=== PATIENT | male | born 1995 | race Two or more races ===

== ENCOUNTER 2017-05-20 12:43 | Inpatient (IN) | payer OTHER ==
[~2017-05-20] VITALS: Ht 185.4 cm; Wt 81.6 kg
[2017-05-20 14:46] LABS: HEMATOCRIT 42.1 % (38.0-50.0); MCH 26.5 PG (29.0-34.0); MCHC 32.1 G/DL (30.0-36.0); MCV 82.5 FL (86-99); MEAN PLAT.VOLUME 9.6 uM^3 (9.0-12.4); PLATELET COUNT 241 K/uL (156-360); RBC DIS.WIDTH-CV 13.6 % (11.8-14.6); RBC DIS.WIDTH-SD 41.1 % (39-53); WHITE BLOOD COUNT 5.5 K/uL (4.1-10.2)
[2017-05-20 14:58] LABS: CHLORIDE 104 mEq/L (99-109); POTASSIUM 3.7 mEq/L (3.7-5.4); SODIUM 139 mEq/L (136-147)
[2017-05-20 15:05] LABS: AMPHETAMINE NEGATIVE (500 ng/mL); BARBITURATES NEGATIVE (200 ng/mL); BENZODIAZEPINES NEGATIVE (150 ng/mL); COCAINE PRESUMPTIVE POSITIVE (150 ng/mL); INTERNAL CONTROLS VALID? YES; METHADONE NEGATIVE (200 ng/mL); METHAMPHETAMINE NEGATIVE (500 ng/mL); OPIATES (MORPHINE) PRESUMPTIVE POSITIVE (100 ng/mL); OXYCODONE PRESUMPTIVE POSITIVE (100 ng/mL); PHENCYCLIDINE NEGATIVE (25 ng/mL); PROPOXYPHENE NEGATIVE (300 ng/mL); THC CANNABINOIDS NEGATIVE (50 ng/mL); TRICYCLIC ANTIDEPRESSANTS NEGATIVE (300 ng/mL)
[2017-05-20 15:06] LABS: ADD MEDTOX COMMENT Y
[2017-05-20 15:57] LABS: ANION GAP 9 MEQ/L (2-14); SAMPLE HEMOLYSIS CHECK 0; SAMPLE ICTERIC CHECK 0; SAMPLE LIPEMIA CHECK 0
[2017-05-20 16:05] LABS: GFR ESTIMATE (CALCULATED) > 59 mL/min/; GLUCOSE 84 mg/dL (70-99); SERUM ETHYL ALCOHOL < 10 mg/dL; UREA NITROGEN (BUN) 8 mg/dL (9-23)
[2017-05-20 17:47] VITALS: BP 121/67
[2017-05-21 07:59] VITALS: BP 107/55
[2017-05-21 16:05] VITALS: BP 107/51
[2017-05-22 07:21] VITALS: BP 111/55
[2017-05-22 16:19] VITALS: BP 106/70
[2017-05-23 07:34] VITALS: BP 91/43
[2017-05-23] MEDS ORDERED: HYDROXYZINE PAM50 MG PO (09:58)
== END 2017-05-23 11:40 | disposition home or self-care (01) | DRG 897 ==
LOC: EME 12:43 → EDOF 14:16 → 1WEST 17:48
PROVIDERS: Emergency Medicine
DX: F19.94 Other psychoactive substance use, unspecified with psychoactive substance-induced mood disorder (principal); F14.99 Cocaine use, unspecified with unspecified cocaine-induced disorder; F11.23 Opioid dependence with withdrawal; F17.210 Nicotine dependence, cigarettes, uncomplicated; F32.9 Major depressive disorder, single episode, unspecified; Z81.3 Family history of other psychoactive substance abuse and dependence
CPT/HCPCS: 80048; 84999; 85027; 90839; 97150 GO; 97165 GO; 99281; 99283; G0480; J0572; J0574; Q0177

== ENCOUNTER 2017-09-13 21:42 | Emergency (ER) | payer BC ==
[~2017-09-13] VITALS: Ht 182.9 cm; Wt 88.0 kg
[~2017-09-13 21:42] MED LIST: HYDROXYZINE PAM50 MG PO
[2017-09-13 21:51] VITALS: BP 120/81
== END 2017-09-14 02:00 | disposition left against medical advice (07) ==
LOC: EME 21:42
DX: Z53.21 Procedure and treatment not carried out due to patient leaving prior to being seen by health care provider (principal)